=== PATIENT | male | born 1960 | race Caucasian/White ===

== ENCOUNTER 2024-12-28 21:22 | Emergency (ER) | payer OTHER, SELFPAY ==
[2024-12-28 21:28] VITALS: BP 157/65; PULSE 91; TEMP 36.6; O2SAT 97; BMI 36.4
--- OUTSIDE RECORDS SUMMARY | 2024-12-28 21:32 | XMS_ITS | Clinical Summary ---
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 Do not crush, chew, or split. .Active mirtazapine (Remeron) 15 MG tablet Take 15 mg by mouth at bedtime.Active ondansetron (Zofran) 4 MG tablet Take 4 mg by mouth every 12 (twelve) hours if needed for nausea or vomiting. Active QUEtiapine (SEROquel) 50 MG tablet Take 50 mg by mouth at bedtime.Active propranolol (Inderal) 20 MG tablet Take 20 mg by mouth in the morning and 20 mg in the evening and 20 mg before bedtime.Active dilTIAZem (Cardizem) 120 MG immediate release tablet Take 120 mg by mouth in the morning and 120 mg at noon and 120 mg in the evening and 120 mg before bedtime.Active carbamide peroxide (Debrox) 6.5 % otic solution Administer 5 drops into each ear in the morning and 5 drops before bedtime. Active omeprazole OTC (PriLOSEC OTC) 20 MG EC tablet Take 20 mg by mouth in the morning. Take before meals. Do not crush, chew, or split. .Active insulin glargine (Lantus) 100 UNIT/ML injection Inject under the skin at bedtime.Active furosemide (Lasix) 40 MG tablet Take 40 mg by mouth in the morning.Active magnesium oxide (Mag-Ox) 400 mg tablet Take 400 mg by mouth in the morning.Active empagliflozin (Jardiance) 25 MG Take 25 mg by mouth in the morning.Active glipiZIDE XL (Glucotrol XL) 10 MG 24 hr tablet Take 10 mg by mouth in the morning. Do not crush, chew, or split. .Active metFORMIN, OSM, (Fortamet) 1000 MG 24 hr tablet Take 1,000 mg by mouth in the evening. Take with meals. Do not crush, chew, or split.Active atorvastatin (Lipitor) 20 MG tablet Take 20 mg by mouth in the morning.Active aspirin 81 MG EC tablet Take 81 mg by mouth in the morning.Active Social History Tobacco UseTypesPacks/DayYears UsedDateSmoking Tobacco: FormerCigarettes Tobacco Cessation:Counseling Given: No Alcohol UseStandard Drinks/WeekCommentsNever0 (1 standard drink = 0.6 oz pure alcohol)Sex and Gender InformationValueDate RecordedSex Assigned at BirthNot on fileLegal RqrVvxs0205/20/2022 7:21 PM EDTGender IdentityNot on fileSexual OrientationNot on file Last Filed Vital Signs Vital SignReadingTime TakenCommentsBlood Pressure--Pulse--Temperature-- Respiratory Rate--Oxygen Saturation--Inhaled Oxygen Concentration--Gkhjhe920 kg (245 lb)09/09/2022 3:32 PM YQTWzkgak430.3 cm (5' 11 )09/09/2022 3:32 PM EDTBody Mass Index34.17009/09/2022 3:32 PM EDT Plan of Treatment Not on file Insurance
--- OUTSIDE RECORDS SUMMARY | 2024-12-28 21:32 | XMS_ITS | Clinical Summary ---
Author Organization [facility] Address [address] 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
--- NOTE | 2024-12-28 21:51 | XR_ITS ---
The [address] [address] Patient Name: BRIAN HERNANDEZ JR MRN: [id number] date: 1960 Sex: M Assigned Patient Location: ED.MAIN Current Patient Location: ED.MAIN Accession/Order Number: [id number] Exam Date: 12/28/2024 21:55 Report Date: 12/28/2024 22:25 At the request of: WILMAN LOPEZ MD Procedure: XR chest 2V PA AND LATERAL CHEST: CLINICAL HISTORY: SOB COMPARISON: None FINDINGS: Unremarkable cardiomediastinal. Lungs clear. No effusion or pneumothorax. XR/XR chest 2V IMPRESSION: NO ACUTE CARDIOPULMONARY ABNORMALITY. Impression dictated by: Levy Rios M.D. 12/28/2024 10:25 PM Dictation Location: [place] [address] Electronically authenticated by: [id number] Y Date: 12/28/2024 22:25
--- NOTE | 2024-12-28 21:51 | CT_ITS ---
The [address] [address] Patient Name: BRIAN HERNANDEZ JR MRN: [id number] date: 1960 Sex: M Assigned Patient Location: ED.MAIN Current Patient Location: ED.MAIN Accession/Order Number: [id number] Exam Date: 12/28/2024 21:55 Report Date: 12/28/2024 22:36 At the request of: WILMAN LOPEZ MD Procedure: CT thoracic spine wo con CT THORACIC SPINE WITHOUT CONTRAST WITH 3D RECONSTRUCTIONS: CLINICAL HISTORY: lump in mid back on right after fall yesterday COMPARISON: None TECHNIQUE: Spiral axial unenhanced images were obtained through the thoracic spine. Sagittal, coronal and 3D volume-rendered reconstructions were also reviewed. This CT exam was performed using one or more following dose reduction techniques: Automated exposure control, adjustment of the mA and/or kV according to patient size, or use of iterative reconstruction technique. FINDINGS: Multilevel comparison osteophytosis and bridging osteophytosis anteriorly. 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 Multilevel facet arthropathy, moderate. No evidence of acute fracture malalignment. No focal subcutaneous abnormality at the site of clinical concern. CT/CT thoracic spine wo con IMPRESSION: Multilevel thoracic syndesmophytosis without evidence acute fracture malalignment. Impression dictated by: Levy Rios M.D. 12/28/2024 10:36 PM Dictation Location: [place] [address] Electronically authenticated by: [id number] Y Date: 12/28/2024 22:36
--- NOTE | 2024-12-28 21:51 | CT_ITS ---
The [address] [address] Patient Name: BRIAN HERNANDEZ JR MRN: [id number] date: 1960 Sex: M Assigned Patient Location: ED.MAIN Current Patient Location: ED.MAIN Accession/Order Number: [id number] Exam Date: 12/28/2024 21:55 Report Date: 12/28/2024 22:32 At the request of: WILMAN LOPEZ MD Procedure: CT head/brain wo con CT BRAIN WITHOUT CONTRAST: CLINICAL HISTORY: leaning to the left, [place] COMPARISON: None TECHNIQUE: Contiguous axial unenhanced images were obtained through the brain. This CT exam was performed using one or more following dose reduction techniques: Automated exposure control, adjustment of the mA and/or kV according to patient size, or use of iterative reconstruction technique. FINDINGS: There is no evidence of midline shift, intra or extra-axial fluid collection, hemorrhage or CT evidence of acute large vascular distribution stroke. Central involutional changes and chronic small vessel ischemic disease. . Visualized intraorbital contents appear unremarkable. Mild ethmoid sinus thickening. Mastoids are clear. The surrounding soft tissues are normal. CT/CT head/brain wo con IMPRESSION: NO ACUTE INTRACRANIAL ABNORMALITY. CHRONIC MICROVASCULAR DISEASE AND CENTRAL INVOLUTIONAL CHANGES. Impression dictated by: Levy Rios M.D. 12/28/2024 10:32 PM Dictation Location: [place] [address] Electronically authenticated by: [id number] Y Date: 12/28/2024 22:32
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
== END 2024-12-28 22:57 | disposition home or self-care (01) ==
PROVIDERS: Emergency Provider Emergency Medicine
DX: R29.6 Repeated falls (principal); M79.89 Other specified soft tissue disorders; R22.2 Localized swelling, mass and lump, trunk; R26.89 Other abnormalities of gait and mobility; W18.30XA Fall on same level, unspecified, initial encounter; Z91.81 History of falling; R06.02 Shortness of breath
CPT/HCPCS: 70450; 71046; 72128; 76376; 99284